=== PATIENT | female | born 1955 | race Caucasian/White ===

== ENCOUNTER 2016-12-14 09:51 | Emergency (ER) | payer OTHER ==
[2016-12-14 10:01] VITALS: RESP 18; TEMP 97.9
[2016-12-14] MEDS ORDERED: methylPREDNISolone SOD SUCCI 125 MG/2 ML VIAL IM ONE (10:16)
--- NOTE | 2016-12-14 10:25 | ED ---
General Adult HPI - General Chief complaint: Allergic Reaction Stated complaint: allergic reaction Time Seen by Provider: 12/14/16 10:03 Source: patient Mode of arrival: ambulatory Limitations: no limitations - History of Present Illness Initial comments: Patient is a 61-year-old female who presents to the emergency department for evaluation of left ear pain and hives. Patient reports that last week she began experiencing pain in her left ear, she visited an urgent care where she was prescribed antibiotic drops. Patient reports she was compliant with these drops for 2 days after beginning them she began to have an ALLERGIC reaction to the sulfa drops. Patient reports she developed red eyes and subsequently followed up with ophthalmology who advised her she was having ALLERGIC reaction. She then followed up again in the urgent care and was prescribed azithromycin for ear infection advised to take Benadryl for the ALLERGIC reaction. Patient reports she has been attempting to treat the ear infection by placing apple cider vinegar on a cotton ball and setting up in her ear. She reports despite this treatment she has persistent tenderness in drainage from the left ear. Patient reports that she has been compliant with azithromycin and woke up this morning with hives on her arms and trunk. Patient denies any swelling of her lips or tongue, any tightness in her chest or trouble breathing , any wheezing. Patient reports that she took 2 Benadryl prior to coming to the emergency department this morning for treatment of ALLERGIC reaction. Patient expresses concern about her persistent ear infection because she is scheduled to fly to [place] later in the week. - Related Data Previous Rx's Medication Instructions Recorded Ciprofloxacin HCl/Dexameth 4 drops LEFT EAR BID #7.5 ml 12/14/16 [Ciprodex Otic Suspension] Allergies Allergy/AdvReac Type Severity Reaction Status Date / Time azithromycin Allergy Rash/Hives Verified 12/14/16 10:01 Penicillins Allergy Unknown Verified 12/14/16 10:01 Childhood Sulfa (Sulfonamide Allergy Swelling Verified 12/14/16 10:01 Antibiotics) Review of Systems ROS Statement: Those systems with pertinent positive or pertinent negative responses have been documented in the HPI. ROS Other: All systems not noted in ROS Statement are negative. Constitutional: Denies: fever, chills Eyes: Reports: other (Eye redness) ENT: Reports: ear pain Respiratory: Denies: cough, wheezes Cardiovascular: Denies: chest pain, palpitations Endocrine: Denies: fatigue Gastrointestinal: Denies: abdominal pain, nausea, vomiting Skin: Reports: rash, pruritus Neurological: Denies: headache Hematological/Lymphatic: Denies: easy bleeding, easy bruising Past Medical History Past Medical History: No Reported History History of Any Multi-Drug Resistant Organisms: None Reported Past Surgical History: Section Past Psychological History: No Psychological Hx Reported Smoking Status: Current every day smoker Past Alcohol Use History: None Reported Past Drug Use History: None Reported General Exam Limitations: no limitations General appearance: alert, in no apparent distress Head exam: Present: atraumatic, normocephalic, normal inspection Eye exam: Present: normal appearance, PERRL, EOMI, conjunctival injection. Absent: scleral icterus, periorbital swelling ENT exam: Present: mucous membranes moist, TM's normal bilaterally, other (Left ear canal erythematous, edematous, clear drainage noted) Neck exam: Present: normal inspection. Absent: tenderness, meningismus, lymphadenopathy Respiratory exam: Present: normal lung sounds bilaterally. Absent: respiratory distress, wheezes, rales, rhonchi, stridor Cardiovascular Exam: Present: regular rate, normal rhythm, normal heart sounds. Absent: systolic murmur, diastolic murmur, rubs, gallop, clicks GI/Abdominal exam: Present: soft, normal bowel sounds. Absent: distended, tenderness, guarding, rebound, rigid Extremities exam: Present: normal inspection, full ROM, normal capillary refill. Absent: tenderness, pedal edema, joint swelling, calf tenderness Neurological exam: Present: alert, oriented X3 Psychiatric exam: Present: normal affect, normal mood Skin exam: Present: warm, dry, intact, normal color, rash, urticaria (Hives on bilateral extremities and trunk) Course Vital Signs 12/14/16 09:55 Temperature 97.9 F Pulse Rate 89 Respiratory 18 Rate Blood Pressure 101/58 O2 Sat by Pulse 98 Oximetry Medical Decision Making - Medical Decision Making Patient was seen and evaluated History was obtained from the patient Physical exam consistent with left otitis externa as well as hives on the bilateral upper extremities and trunk consistent with an ALLERGIC reaction, no hemodynamic instability, no GI or airway involvement Patient is artery taken Benadryl prior to arrival, will give steroids and prescribe the patient Ciprodex for otitis externa All questions pertaining to care were answered to the best of my ability and the patient was discharged home in stable condition. Disposition Clinical Impression: Allergic reaction, Otitis externa Disposition: HOME SELF-CARE Condition: Good Instructions: Otitis Externa (ED) Referrals: Chilango Macias DO [Primary Care Provider] - 1-2 days Decision Time: 10:28
[2016-12-14 10:53] VITALS: BP 131/66; PULSE 78
== END 2016-12-14 10:51 | disposition home or self-care (01) ==
LOC: EC 09:51
DX: L50.9 Urticaria, unspecified (principal); T36.3X5A Adverse effect of macrolides, initial encounter; H60.92 Unspecified otitis externa, left ear; F17.200 Nicotine dependence, unspecified, uncomplicated; Z88.0 Allergy status to penicillin; Z88.1 Allergy status to other antibiotic agents; Z88.2 Allergy status to sulfonamides
CPT/HCPCS: 99283; 96372; J2930

== ENCOUNTER → 2017-05-18 | Outpatient (CLI) | payer OTHER ==
--- NOTE | 2017-05-19 10:53 | MM ---
Reason for exam: screening (asymptomatic). Last mammogram was performed 5 years and 10 months ago. History: Patient is postmenopausal and history of other cancer. Family history of premenopausal breast cancer in sister at age 36. Physical Findings: A clinical breast exam by your physician is recommended on an annual basis and results should be correlated with mammographic findings. MG Screening Mammo w CAD Bilateral CC and MLO view(s) were taken. Prior study comparison: July 22, 2011, bilateral digital screening mammo w/CAD. January 28, 2010, bilateral digital screening mammogram. There are scattered fibroglandular densities. Finding: There are typically benign round calcifications in both breasts. There is no discrete abnormality. ASSESSMENT: Benign, BI-RAD 2 RECOMMENDATION: Routine screening mammogram of both breasts in 1 year.
== END | disposition home or self-care (01) ==
LOC: RADMAMWWP 09:33
PROVIDERS: ATTEND Family Medicine
DX: Z12.31 Encounter for screening mammogram for malignant neoplasm of breast (principal)
CPT/HCPCS: 77067

== ENCOUNTER 2017-09-05 13:41 | Emergency (ER) | payer OTHER ==
--- NOTE | 2017-09-05 15:14 | ED ---
General Adult HPI - General Chief complaint: Recheck/Abnormal Lab/Rx Stated complaint: Poss/ food posioning Time Seen by Provider: 09/05/17 14:09 Source: patient, RN notes reviewed Mode of arrival: ambulatory Limitations: no limitations - History of Present Illness Initial comments: Chief complaint and history of present illness this is a 62-year-old female who is coming emergency room because she had gone to the police station with a complaint that she thought her may be trying to poison her. Patient reports that for the last 3 months she had been requesting a divorce. She states far too often while at home when he gives her something to eat or drink she develops severe diarrhea. This happened last night. Patient reports when she visits her son in [place] she's never sick and has no diarrhea. I called poison control and they suggested that the patient had blood arsenic level, GCMS for drug identification, PT/INR and blood and urine drug triage. Patient states she feels better now. States she has a safe place to go, to live with her mother. States she will not eat anything unless not prepared by herself. Patient states she is not worried, though she was told we can provide information concerning safe places to go. Patient insists her mother's house and where she wants to go and she is safe there. - Related Data Allergies Allergy/AdvReac Type Severity Reaction Status Date / Time azithromycin Allergy Rash/Hives Verified 09/05/17 13:48 Penicillins Allergy Unknown Verified 09/05/17 13:48 Childhood Sulfa (Sulfonamide Allergy Swelling Verified 09/05/17 13:48 Antibiotics) Review of Systems ROS Statement: Those systems with pertinent positive or pertinent negative responses have been documented in the HPI. Review of systems patient has no complaints of headache no visual acuity changes no chest pain shortness breath GI/ problems. She states that she had diarrhea all night is better at this time. States she may been a difficulty providing a stool sample she will give us a urine sample. Patient reports she' s had this on again off again and thinks it is often associated with food or coffee provided by her . Patient reports that she felt funny several days ago. No samples available of the food or coffee that she was given that we could test. No neuro deficits. Patient denies being depressed. Past medical problems none. Does not take any medications. Surgeries: C- section and one benign lymphadenopathy lymph node removed from her left carotid area. The patient's family history significant for a sister with breast cancer. The patient has ALLERGIES to azithromycin penicillin and sulfa. She does smoke she is encouraged to stop denies alcohol use. ROS Other: All systems not noted in ROS Statement are negative. Past Medical History Past Medical History: No Reported History History of Any Multi-Drug Resistant Organisms: None Reported Past Surgical History: Section Additional Past Surgical History / Comment(s): neck gland removal Past Psychological History: No Psychological Hx Reported Smoking Status: Current every day smoker Past Alcohol Use History: None Reported Past Drug Use History: None Reported General Exam - General Exam Comments Initial Comments: General: The patient is awake and alert, in no distress, and does not appear acutely ill. Here because she thinks her may be trying to poison her. She states for the past 3 months she had told them she wants a divorce. She states she thinks the problems started over 3 years ago. Vital signs shows temperature 98.2 pulse 11 respiratory rate 18 pulse ox 96% room air blood pressure 119/75 Eye: Pupils are equal, round and reactive to light, extra-ocular movements are intact ; there is normal conjunctiva bilaterally. No signs of icterus. Ears, nose, mouth and throat: There are moist mucous membranes and no oral lesions. Neck: The neck is supple, there is no tenderness, no anterior cervical lymphadenopathy. Cardiovascular: There is a regular rate and rhythm. No murmur, rub or gallop is appreciated. Respiratory: Lungs are clear to auscultation, respirations are non-labored, breath sounds are equal. No wheezes, stridor, rales, or rhonchi. Gastrointestinal: Soft, non-distended, non-tender abdomen without masses or organomegaly noted. There is no rebound or guarding present. No CVA tenderness. Bowel sounds are unremarkable. Back: There is no tenderness to palpation in the midline. There is no obvious deformity. No rashes noted. Musculoskeletal: Normal ROM, no tenderness, There is no pedal edema. There is no calf tenderness or swelling. Sensation intact. Pulses equal bilaterally 2+. Neurological: CN II-XII intact, There are no obvious motor or sensory deficits. Coordination appears grossly intact. Speech is normal. No focal or lateralizing findings. Skin: Skin is warm and dry and no rashes or lesions are noted. Psychiatric: Cooperative, appropriate mood & affect, normal judgment. Denies being depressed denies any past psychological issues. Limitations: no limitations Course Vital Signs 09/05/17 09/05/17 09/05/17 13:43 14:38 15:51 Temperature 98.2 F 98.0 F Pulse Rate 101 H 87 Respiratory 18 16 18 Rate Blood Pressure 119/75 141/69 O2 Sat by Pulse 96 98 Oximetry EKG Findings - EKG Comments: EKG Findings:: EKG was done and reviewed at 1609 showing normal sinus rhythm no acute ST elevation no ectopy no ischemic changes. Rate 71 CT interval was 156 QRS 84 QT [address] Leyva Medical Decision Making - Medical Decision Making Medical decision making; this is a 62-year-old female who is coming emergency room on the advice of the local Police Department. The patient thinks that she may be being poisoned by her . She states she told them 3 months ago she wants a divorce. She reported her concerns to the police and they took him record. I spoke with poison control and they suggested several things all of which are being performed. These tests are send out tests patient understands. She also understands that if she needs a safe place to go other than her mother's home we can provide that information. She insists that she feels safe in her mother' s. She was advised to notify her family doctor concerning this issues as well. A she will provide 24-hour urine for speciated testing for arsenic. She was given a container she will bring it back to her laboratory. Her blood will be sent to the appropriate labs for gas chronic atrophy. Patient will be discharged and she'll be going home to her mother's home where she feels safe. Available labs at this time find CBC to be within normal limits, urine drug screen was positive for marijuana. Patient states she has a medical marijuana card for chronic ankle pain. Labs show white count is 10 hemoglobin 15 hematocrit 45, potassium 4.3 chloride 109, carbon dioxide 21. BUN 14 creatinine 0.7 GFR greater than 90. Glucose 104. EKG showed normal sinus rhythm. The patient will be discharged to her mother's home told to follow-up with Dr. Macias return emergency room as needed. - Lab Data Result diagrams: 09/05/17 15:30 09/05/17 15:30 Lab Results 09/05/17 09/05/17 09/05/17 Range/Units 15:30 15:30 15:30 WBC 10.4 (3.8-10.6) k/uL RBC 5.25 (3.80-5.40) m/uL Hgb 15.6 (11.4-16.0) gm/dL Hct 45.7 (34.0-46.0) % MCV 86.9 (80.0-100.0) fL MCH 29.6 (25.0-35.0) pg MCHC 34.1 (31.0-37.0) g/dL RDW 12.6 (11.5-15.5) % Plt Count 262 (150-450) k/uL Neutrophils % 73 % Lymphocytes % 20 % Monocytes % 4 % Eosinophils % 3 % Basophils % 0 % Neutrophils # 7.6 (1.3-7.7) k/uL Lymphocytes # 2.1 (1.0-4.8) k/uL Monocytes # 0.4 (0-1.0) k/uL Eosinophils # 0.3 (0-0.7) k/uL Basophils # 0.0 (0-0.2) k/uL PT 10.2 (9.0-12.0) sec INR 1.0 (<1.2) Sodium (137-145) mmol/L Potassium (3.5-5.1) mmol/L Chloride (98-107) mmol/L Carbon Dioxide (22-30) mmol/L Anion Gap mmol/L BUN (7-17) mg/dL Creatinine (0.52-1.04) mg/dL Est GFR (CKD-EPI)AfAm (>60 ml/min/1.73 sqM) Est GFR (CKD-EPI)NonAf (>60 ml/min/1.73 sqM) Glucose (74-99) mg/dL Calcium (8.4-10.2) mg/dL Total Bilirubin (0.2-1.3) mg/dL AST (14-36) U/L ALT (9-52) U/L Alkaline Phosphatase (38-126) U/L Total Protein (6.3-8.2) g/dL Albumin (3.5-5.0) g/dL Urine Opiates Screen Not Detected (NotDetected) Ur Oxycodone Screen Not Detected (NotDetected) Urine Methadone Screen Not Detected (NotDetected) Ur Propoxyphene Screen Not Detected (NotDetected) Ur Barbiturates Screen Not Detected (NotDetected) U Tricyclic Antidepress Not Detected (NotDetected) Ur Phencyclidine Scrn Not Detected (NotDetected) Ur Amphetamines Screen Not Detected (NotDetected) U Methamphetamines Scrn Not Detected (NotDetected) U Benzodiazepines Scrn Not Detected (NotDetected) Urine Cocaine Screen Not Detected (NotDetected) U Marijuana (THC) Screen Detected H (NotDetected) 09/05/17 Range/Units 15:30 WBC (3.8-10.6) k/uL RBC (3.80-5.40) m/uL Hgb (11.4-16.0) gm/dL Hct (34.0-46.0) % MCV (80.0-100.0) fL MCH (25.0-35.0) pg MCHC (31.0-37.0) g/dL RDW (11.5-15.5) % Plt Count (150-450) k/uL Neutrophils % % Lymphocytes % % Monocytes % % Eosinophils % % Basophils % % Neutrophils # (1.3-7.7) k/uL Lymphocytes # (1.0-4.8) k/uL Monocytes # (0-1.0) k/uL Eosinophils # (0-0.7) k/uL Basophils # (0-0.2) k/uL PT (9.0-12.0) sec INR (<1.2) Sodium 144 (137-145) mmol/L Potassium 4.3 (3.5-5.1) mmol/L Chloride 109 H (98-107) mmol/L Carbon Dioxide 21 L (22-30) mmol/L Anion Gap 14 mmol/L BUN 14 (7-17) mg/dL Creatinine 0.70 (0.52-1.04) mg/dL Est GFR (CKD-EPI)AfAm >90 (>60 ml/min/1.73 sqM) Est GFR (CKD-EPI)NonAf >90 (>60 ml/min/1.73 sqM) Glucose 104 H (74-99) mg/dL Calcium 10.1 (8.4-10.2) mg/dL Total Bilirubin 0.4 (0.2-1.3) mg/dL AST 23 (14-36) U/L ALT 31 (9-52) U/L Alkaline Phosphatase 61 (38-126) U/L Total Protein 7.2 (6.3-8.2) g/dL Albumin 4.4 (3.5-5.0) g/dL Urine Opiates Screen (NotDetected) Ur Oxycodone Screen (NotDetected) Urine Methadone Screen (NotDetected) Ur Propoxyphene Screen (NotDetected) Ur Barbiturates Screen (NotDetected) U Tricyclic Antidepress (NotDetected) Ur Phencyclidine Scrn (NotDetected) Ur Amphetamines Screen (NotDetected) U Methamphetamines Scrn (NotDetected) U Benzodiazepines Scrn (NotDetected) Urine Cocaine Screen (NotDetected) U Marijuana (THC) Screen (NotDetected) Disposition Clinical Impression: Poisoning by agent primarily affecting gastrointestinal system Disposition: HOME SELF-CARE Condition: Fair Instructions: Gastroenteritis (ED) Additional Instructions: Follow-up with family physician. Moving with year mother. Return emergency room if he have any difficulties or problems. Return to 24 hour urine collection to the lab. Is patient prescribed a controlled substance at d/c from ED?: No Referrals: Chilango Macias DO [Primary Care Provider] - 1-2 days Time of Disposition: 16:26
[2017-09-05 15:44] LABS: Basophils % (A) 0 %; Eosinophils # (A) 0.3 k/uL (0-0.7); Eosinophils % (A) 3 %; HCT 45.7 % (34.0-46.0); HGB 15.6 gm/dL (11.4-16.0); Lymphocytes # (A) 2.1 k/uL (1.0-4.8); Lymphocytes % (A) 20 %; MCH 29.6 pg (25.0-35.0); MCHC 34.1 g/dL (31.0-37.0); MCV 86.9 fL (80.0-100.0); Mean Platelet Volume 8.2; Monocytes # (A) 0.4 k/uL (0-1.0); Monocytes % (A) 4 %; Neutrophils # (A) 7.6 k/uL (1.3-7.7); Neutrophils % (A) 73 %; Platelet Count 262 k/uL (150-450); RBC 5.25 m/uL (3.80-5.40); RDW 12.6 % (11.5-15.5); WBC 10.4 k/uL (3.8-10.6)
[2017-09-05 15:53] LABS: Prothrombin Time 10.2 sec (9.0-12.0)
[2017-09-05 15:56] VITALS: BP 141/69; PULSE 87; RESP 18; TEMP 98
[2017-09-05 15:56] LABS: Amphetamine Screen,Urine Not Detected (NotDetected); Barbiturate Screen,Urine Not Detected (NotDetected); Benzodiazepines Screen,Urine Not Detected (NotDetected); Cocaine Screen,Urine Not Detected (NotDetected); Methadone Screen, Urine Not Detected (NotDetected); Opiate Screen,Urine Not Detected (NotDetected); Oxycodone Screen, Urine Not Detected (NotDetected); Phencyclidine Screen,Urine Not Detected (NotDetected); Tricyclic Antidepressant,Urine Not Detected (NotDetected); Urn Cannabinoid Scrn Detected (NotDetected)
[2017-09-05 16:00] LABS: ALT 31 U/L (9-52); AST 23 U/L (14-36); Albumin 4.4 g/dL (3.5-5.0); Alkaline Phosphatase 61 U/L (38-126); Anion Gap 14 mmol/L; Blood Urea Nitrogen 14 mg/dL (7-17); Calcium 10.1 mg/dL (8.4-10.2); Carbon Dioxide 21 mmol/L (22-30); Chloride 109 mmol/L (98-107); Glucose 104 mg/dL (74-99); Potassium 4.3 mmol/L (3.5-5.1); Sodium 144 mmol/L (137-145); Total Bilirubin 0.4 mg/dL (0.2-1.3); Total Protein 7.2 g/dL (6.3-8.2)
== END 2017-09-05 16:34 | disposition home or self-care (01) ==
LOC: EC 13:41
DX: K52.1 Toxic gastroenteritis and colitis (principal); T65.91XA Toxic effect of unspecified substance, accidental (unintentional), initial encounter; F17.200 Nicotine dependence, unspecified, uncomplicated; Z88.0 Allergy status to penicillin; Z88.1 Allergy status to other antibiotic agents; Z88.2 Allergy status to sulfonamides
CPT/HCPCS: 36415; 80053; 80306; 80307; 82175; 82570; 83655; 83825; 85025; 85610; 93005; 99284

== ENCOUNTER → 2017-09-07 | Outpatient (CLI) | payer OTHER | END | disposition home or self-care (01) | LOC: LABWHC1 10:49 | PROVIDERS: ATTEND Family Medicine | DX: T65.91XA Toxic effect of unspecified substance, accidental (unintentional), initial encounter (principal); K52.1 Toxic gastroenteritis and colitis; R19.7 Diarrhea, unspecified | CPT/HCPCS: 82175; 83655; 83825 ==

== ENCOUNTER → 2021-12-10 | Outpatient (CLI) | payer OTHER ==
--- NOTE | 2021-12-11 08:17 | MM ---
Reason for Exam: Screening (asymptomatic). Last mammogram was performed 4 year(s) and 6 month(s) ago. Patient History: Menarche at age 15. First Full-Term at age 30. Postmenopausal. Other cancer. Sister had breast cancer, age 36. Risk Values: Maryan 5 year model risk: 3.2%. NCI Lifetime model risk: 12.4%. Prior Study Comparison: 12/22/1994 Screening Mammogram, Unknown. 12/28/1995 Screening Mammogram, Unknown. 03/17/2007 Bilateral Screening Mammogram, [facility]. 08/06/2008 Bilateral Screening Mammogram, [facility]. 01/28/2010 Bilateral Screening Mammogram, [facility]. 07/22/2011 Bilateral Screening Mammogram, [facility]. 05/18/2017 Bilateral Screening Mammogram, [facility]. Tissue Density: There are scattered fibroglandular densities. Findings: Analyzed By CAD. There is a single benign-appearing round calcification bilaterally redemonstrated. There is no suspicious group of microcalcifications or new suspicious mass in either breast. Overall Assessment: Benign, BI-RAD 2 Management: Screening Mammogram of both breasts in 1 year. A clinical breast exam by your physician is recommended on an annual basis and results should be correlated with mammographic findings. Electronically signed and approved by: Robert Banegas M.D.
== END | disposition home or self-care (01) ==
LOC: RADMAMWWP 12:59
PROVIDERS: ATTEND Family Medicine
DX: Z12.31 Encounter for screening mammogram for malignant neoplasm of breast (principal)
CPT/HCPCS: 77067

== ENCOUNTER 2022-03-20 13:54 | Emergency (ER) | payer MEDICARE, OTHER ==
[2022-03-20 14:08] VITALS: BP 134/76; PULSE 90; RESP 16; TEMP 97
[2022-03-20 14:42] LABS: Basophils % (A) 1 %; Eosinophils % (A) 0 %; HCT 40.5 % (34.0-46.0); HGB 14.4 gm/dL (11.4-16.0); Lymphocytes # (A) 0.9 k/uL (1.0-4.8); Lymphocytes % (A) 12 %; MCH 30.3 pg (25.0-35.0); MCHC 35.6 g/dL (31.0-37.0); MCV 85.2 fL (80.0-100.0); Mean Platelet Volume 9.5; Monocytes # (A) 0.3 k/uL (0-1.0); Monocytes % (A) 3 %; Neutrophils # (A) 6.2 k/uL (1.3-7.7); Neutrophils % (A) 82 %; Platelet Count 184 k/uL (150-450); RBC 4.75 m/uL (3.80-5.40); RDW 12.6 % (11.5-15.5); WBC 7.5 k/uL (3.8-10.6)
[2022-03-20 14:54] LABS: ALT 49 U/L (4-34); AST 60 U/L (14-36); African American GFR (CKD) >90 (>60 ml/min/1.73 sqM); Alkaline Phosphatase 70 U/L (38-126); Anion Gap 9 mmol/L; Blood Urea Nitrogen 11 mg/dL (7-17); Calcium 8.5 mg/dL (8.4-10.2); Carbon Dioxide 24 mmol/L (22-30); Chloride 105 mmol/L (98-107); Glucose 130 mg/dL (74-99); Magnesium 2.2 mg/dL (1.6-2.3); Non-African American GFR(CKD) >90 (>60 ml/min/1.73 sqM); Potassium 4.1 mmol/L (3.5-5.1); Sodium 138 mmol/L (137-145); Total Bilirubin 1.1 mg/dL (0.2-1.3); Total Protein 7.2 g/dL (6.3-8.2)
[2022-03-20 14:58] LABS: INR 0.9 (<1.2); Partial Thromboplastin Time 23.7 sec (22.0-30.0); Prothrombin Time 9.5 sec (9.0-12.0)
--- NOTE | 2022-03-20 15:49 | CT ---
EXAMINATION TYPE: CT chest angio for PE CT DLP: 291 mGycm, Automated exposure control for dose reduction was used. DATE OF EXAM: 03/20/2022 3:43 PM COMPARISON : none CLINICAL INDICATION:Female, 67 years old with history of elevated dimer, concern for PE; TECHNIQUE/CONTRAST: CTA scan of the thorax is performed with IV Contrast, patient injected with 50 mL of Isovue 370, pulm onary embolism protocol. MIP images are created and reviewed. FINDINGS: Pulmonary Artery: There is no evidence for a filling defect within the pulmonary vasculature to sugge st acute pulmonary embolism. The pulmonary artery is of normal size. Lungs/Pleura: No evidence of focal consolidation, pleural effusion or pneumothorax. Minimal scarring demonstrated within the medial aspect of the right middle lobe and lingula. Moderate centrilobular em physematous changes. No suspicious pulmonary nodule or mass. Airway: Large airways are patent. Heart: Heart is within normal limits for size.. No pericardial effusion. Vasculature: No evidence of aortic aneurysm. Mediastinum: No gross evidence of adenopathy. Musculoskeletal: No acute osseous abnormalities. No aggressive osseous lesion. Soft Tissues: Unremarkable. Lower neck: No significant findings. Upper Abdomen: Diffuse low-attenuation to the liver parenchyma.. IMPRESSION: 1. No evidence of pulmonary embolism or acute thoracic process. 2. COPD changes. 3. Hepatic steatosis.
--- NOTE | 2022-03-20 15:55 | ED ---
General Adult HPI - General Chief complaint: Shortness of Breath Stated complaint: poss clot/abd labs Time Seen by Provider: 03/20/22 15:35 Source: patient, RN notes reviewed, old records reviewed Mode of arrival: ambulatory Limitations: no limitations - History of Present Illness Initial comments: Patient is a 67-year-old female who presents emergency Department complaining of being sent by her PCP for an elevated d-dimer. Has no medical issues. Has not on any medications at home. The last one week she has had upper respiratory illness symptoms. Endorses congestion, nonproductive cough, fevers, diarrhea, nausea. Symptoms have mostly resolved at this time for the last few days. She still having exertional shortness of breath, as well as a nonproductive cough. Mild congestion as well. Is up-to-date on vaccines. No known sick contacts. Denies any current fevers. Was seen by her PCP and they found that she has an elevated d-dimer and was sent here for CT imaging. She denies any history of blood clots. Denies any chest pain. Denies any current abdominal pain, nausea, vomiting. States the shortness of breath is worse when coughing, or if she exerts herself in long distances, however moving around the house she does not get short of breath. Does not smoke. Denies lower extremity swelling. Denies any recent long distance travel. Denies any lower extremity pain. Presents for further evaluation at this time. - Related Data Allergies Allergy/AdvReac Type Severity Reaction Status Date / Time azithromycin Allergy Rash/Hives Verified 09/05/17 13:48 Penicillins Allergy Unknown Verified 09/05/17 13:48 Childhood Sulfa (Sulfonamide Allergy Swelling Verified 09/05/17 13:48 Antibiotics) Review of Systems ROS Statement: Those systems with pertinent positive or pertinent negative responses have been documented in the HPI. Review of Systems: CONST: Denies fever EYES: Denies blurry vision ENT: Endorses nasal congestion C/V: Denies Chest pain RESP: Endorses mild exertional shortness of breath GI: Denies abdominal pain : Denies dysuria SKIN: Denies rash. MSK: Denies joint pain. NEURO: Denies headache ROS Other: All systems not noted in ROS Statement are negative. Past Medical History Past Medical History: No Reported History History of Any Multi-Drug Resistant Organisms: None Reported Past Surgical History: Section Additional Past Surgical History / Comment(s): neck gland removal Past Psychological History: No Psychological Hx Reported Smoking Status: Current every day smoker Past Alcohol Use History: None Reported Past Drug Use History: None Reported General Exam - General Exam Comments Initial Comments: General: Appears in no acute distress. HEAD: Normal with no signs of head trauma. EYES: PERRLA, EOMI, conjunctiva normal, no discharge. ENT: Hearing grossly intact, normal oropharynx. RESPIRATORY: Clear breath sounds bilaterally. No wheezes, rales, or rhonchi. No hypoxia. No increased work of breathing. C/V: Regular rate and rhythm. S1 and S2 auscultated, no edema, peripheral pulses 2+ and intact throughout ABD: Abd is soft, nontender, nondistended EXT: Normal range of motion, no obvious deformity SKIN: No rashes or lesions observed on exposed skin. NEURO: Alert and oriented 4. Limitations: no limitations Course Vital Signs 03/20/22 14:05 Temperature 97 F L Pulse Rate 90 Respiratory 16 Rate Blood Pressure 134/76 O2 Sat by Pulse 95 Oximetry Medical Decision Making - Medical Decision Making Based on the patient's presentation and physical exam, I'm concerned for likely upper respiratory etiology for his current symptoms. I'm concerned for infectious causes patient does appear to be improving. However I cannot rule out cardiopulmonary etiology considering she did have the elevated d-dimer. Repeat labs were obtained on the patient was in triage and this redemonstrated the elevated d-dimer to 0.89. Troponin is undetectable. We'll add on a BNP as well as cold and flu swabs. EKG showed no signs of acute ischemia. Vital signs were within acceptable limits. I did evaluate patient will she was in the [facility] room. I updated her on the results of her blood work. I would like to obtain a CT chest angiogram to rule out PE. She was in agreement this plan. CT of the chest as interpreted by myself reveals no evidence of pulmonary embolism or acute infectious process. Radiology concurs with this reading, as well as stating over COPD changes and hepatic steatosis. Patient did return positive for influenza A. Covid swab was lost. I did discuss results with the patient. I did offer her Covid swab, however management would not change her she is in no respiratory distress and she has had symptoms for 7 days. She declines this at this time. She understands she does not have a PE. She was and she has influenza but she is improving symptom atically. Symptomatic treatment is what she'll continue at this time. She does not require further laboratory studies or evaluation. She was in agreement with plan for discharge home. I believe this is reasonable. Discussed strict return precautions. I instructed the patient to follow up with their PCP in the next 1-3 days. I explained that the patient should return to the emergency department if they experience any worsening symptoms. Strict return precautions were discussed with the patient. The patient expressed understanding of these instructions. I answered all questions that the patient had. The patient was discharged home in good condition with their prescriptions and follow up information. - Lab Data Result diagrams: 03/20/22 14:22 03/20/22 14: Lab Results 03/20/22 03/20/22 03/20/22 Range/Units 14:22 14:22 14:22 WBC 7.5 (3.8-10.6) k/uL RBC 4.75 (3.80-5.40) m/uL Hgb 14.4 (11.4-16.0) gm/dL Hct 40.5 (34.0-46.0) % MCV 85.2 (80.0-100.0) fL MCH 30.3 (25.0-35.0) pg MCHC 35.6 (31.0-37.0) g/dL RDW 12.6 (11.5-15.5) % Plt Count 184 (150-450) k/uL MPV 9.5 Neutrophils % 82 % Lymphocytes % 12 % Monocytes % 3 % Eosinophils % 0 % Basophils % 1 % Neutrophils # 6.2 (1.3-7.7) k/uL Lymphocytes # 0.9 L (1.0-4.8) k/uL Monocytes # 0.3 (0-1.0) k/uL Eosinophils # 0.0 (0-0.7) k/uL Basophils # 0.0 (0-0.2) k/uL PT 9.5 (9.0-12.0) sec INR 0.9 (<1.2) APTT 23.7 (22.0-30.0) sec D-Dimer 0.89 H (<0.60) mg/L FEU Sodium 138 (137-145) mmol/L Potassium 4.1 (3.5-5.1) mmol/L Chloride 105 (98-107) mmol/L Carbon Dioxide 24 (22-30) mmol/L Anion Gap 9 mmol/L BUN 11 (7-17) mg/dL Creatinine 0.64 (0.52-1.04) mg/dL Est GFR (CKD-EPI)AfAm >90 (>60 ml/min/1.73 sqM) Est GFR (CKD-EPI)NonAf >90 (>60 ml/min/1.73 sqM) Glucose 130 H (74-99) mg/dL Calcium 8.5 (8.4-10.2) mg/dL Magnesium 2.2 (1.6-2.3) mg/dL Total Bilirubin 1.1 (0.2-1.3) mg/dL AST 60 H (14-36) U/L ALT 49 H (4-34) U/L Alkaline Phosphatase 70 (38-126) U/L Troponin I (0.000-0.034) ng/mL NT-Pro-B Natriuret Pep pg/mL Total Protein 7.2 (6.3-8.2) g/dL Albumin 4.0 (3.5-5.0) g/dL Influenza Type A RNA (Not Detectd) Influenza Type B (PCR) (Not Detectd) 03/20/22 03/20/22 03/20/22 Range/Units 14:22 15:59 15:59 WBC (3.8-10.6) k/uL RBC (3.80-5.40) m/uL Hgb (11.4-16.0) gm/dL Hct (34.0-46.0) % MCV (80.0-100.0) fL MCH (25.0-35.0) pg MCHC (31.0-37.0) g/dL RDW (11.5-15.5) % Plt Count (150-450) k/uL MPV Neutrophils % % Lymphocytes % % Monocytes % % Eosinophils % % Basophils % % Neutrophils # (1.3-7.7) k/uL Lymphocytes # (1.0-4.8) k/uL Monocytes # (0-1.0) k/uL Eosinophils # (0-0.7) k/uL Basophils # (0-0.2) k/uL PT (9.0-12.0) sec INR (<1.2) APTT (22.0-30.0) sec D-Dimer (<0.60) mg/L FEU Sodium (137-145) mmol/L Potassium (3.5-5.1) mmol/L Chloride (98-107) mmol/L Carbon Dioxide (22-30) mmol/L Anion Gap mmol/L BUN (7-17) mg/dL Creatinine (0.52-1.04) mg/dL Est GFR (CKD-EPI)AfAm (>60 ml/min/1.73 sqM) Est GFR (CKD-EPI)NonAf (>60 ml/min/1.73 sqM) Glucose (74-99) mg/dL Calcium (8.4-10.2) mg/dL Magnesium (1.6-2.3) mg/dL Total Bilirubin (0.2-1.3) mg/dL AST (14-36) U/L ALT (4-34) U/L Alkaline Phosphatase (38-126) U/L Troponin I <0.012 (0.000-0.034) ng/mL NT-Pro-B Natriuret Pep 185 pg/mL Total Protein (6.3-8.2) g/dL Albumin (3.5-5.0) g/dL Influenza Type A RNA Detected H (Not Detectd) Influenza Type B (PCR) Not Detected (Not Detectd) - EKG Data -: EKG Interpreted by Me EKG Comments: 12-lead Electrocardiogram Interpretation Note EKG was reviewed and interpreted by myself. 12-lead ECG performed at 1418 is interpreted by me as revealing normal sinus rhythm at a rate of 80 beats per minute. [place] is normal. [place] interval is 155 seconds, QRS duration is 82 ms, QTc is 403 ms.. There were no ST or T wave abnormalities to suggest myocardial ischemia or injury. R wave progression across the precordium was satisfactory. By my interpretation this EKG is non-diagnostic for acute ischemia. When compared with EKG from August 2017, no significant change. Disposition Clinical Impression: Influenza A Disposition: HOME SELF-CARE Condition: Good Instructions (If sedation given, give patient instructions): Influenza (DC) Is patient prescribed a controlled substance at d/c from ED?: No Referrals: Chilango Macias DO [Primary Care Provider] - 1-2 days Time of Disposition: 17:20
== END 2022-03-20 17:55 | disposition home or self-care (01) ==
LOC: EC 13:54
DX: J10.1 Influenza due to other identified influenza virus with other respiratory manifestations (principal); F17.200 Nicotine dependence, unspecified, uncomplicated; Z88.0 Allergy status to penicillin; Z88.2 Allergy status to sulfonamides
CPT/HCPCS: 36415; 71275; 80053; 83735; 83880; 84484; 85025; 85379; 85610; 85730; 87502; 93005; 99285